=== PATIENT | male | born 1980 | race Caucasian/White ===

== ENCOUNTER 2023-07-26 18:46 | Emergency (ER) | payer OTHER, SELFPAY ==
[2023-07-26 18:50] VITALS: BP 158/109; PULSE 91; RESP 18; TEMP 36.6; O2SAT 99; BMI 28.6
--- NOTE | 2023-07-26 19:01 | XR_ITS ---
The [address] [address] Patient Name: RONEL NOGUEIRA MRN: [id number] date: 1980 Sex: M Assigned Patient Location: ED.MAIN Current Patient Location: Accession/Order Number: [id number] Exam Date: 07/26/2023 19:05 Report Date: 07/26/2023 20:14 At the request of: JILL ABURTO Procedure: XR ankle RT 2V PROCEDURE: XR ankle RT 2V HISTORY: pain ; acute right ankle pain after falling off ladder COMPARISON: None. FINDINGS: BONES:A few tiny, submillimeter, calcifications distal to the medial malleolus. SOFT TISSUES:Mild medial soft tissue swelling. EFFUSION:None visible. OTHER: Negative. XR/XR ankle RT 2V IMPRESSION: 1. Medial swelling suggesting soft tissue injury. 2. Several tiny punctate calcifications distal to the medial malleolus; tiny cortical avulsion fractures versus sequela of remote injury. Electronically authenticated by: INDY GRISSOM Date: 07/26/2023 20:14
--- NOTE | 2023-07-26 19:01 | ED.LOWEXI1 ---
HPI - Extremity Injury (Lower) General Chief Complaint: Extremity Injury, Lower Stated Complaint: poss broken ankle Time Seen by Provider: 07/26/23 19:01 Source: patient Mode of arrival: Wheelchair Limitations: no limitations History of Present Illness HPI Narrative: 43-year-old male presents with right ankle pain after he rolled it after he was stepping off of a step. Hurts to ambulate move ankle. Denies swelling, temp or sensation changes Related Data Allergies Allergy/AdvReac Type Severity Reaction Status Date / Time No Known Drug Allergies Allergy Verified 07/26/23 18:55 Review of Systems ROS Status of ROS 10 or more systems reviewed and unremarkable except as noted in history and below Exam Narrative Exam Narrative: General: A&Ox3, no distress, talking in full an complete sentences skin: warm, dry, intact head: normocephalic, atraumatic eyes: EOMI nose: nares patent neck: supple, trachea midline respiratory: non-labored extremities: Tender to left medial malleolus, no tenderness to metatarsals or tib-fib, FROM x 4, strength +5/5 neuro: A&Ox3 psych: appropriate mood and affect, cooperative Constitutional Vital Signs, click to edit/add: Last Vital Signs Temp 97.8 F 07/26/23 18:50 Pulse 91 H 07/26/23 18:50 Resp 18 07/26/23 18:50 BP 158/109 H 07/26/23 18:50 Pulse Ox 99 07/26/23 18:50 Course Vital Signs Vital signs: Vital Signs Temperature 97.8 F 07/26/23 18:50 Pulse Rate 91 H 07/26/23 18:50 Respiratory Rate 18 07/26/23 18:50 Blood Pressure 158/109 H 07/26/23 18:50 Pulse Oximetry 99 07/26/23 18:50 Temperature 97.8 F 07/26/23 18:50 Pulse Rate 91 H 07/26/23 18:50 Respiratory Rate 18 07/26/23 18:50 Blood Pressure 158/109 H 07/26/23 18:50 Pulse Oximetry 99 07/26/23 18:50 MDM - Extremity Injury (Lower) MDM Narrative Medical decision making narrative: I offered pain control and he declines. No acute findings on prelim x-ray and reviewed with Dr. Major. Dirk bandage placed with neurovascular intact. I offered crutches and he states that he has them at home. I again offered pain control and he declines. F/u with PCP. afebrile, not tachypneic, not tachycardic, tolerating p.o., not hypoxic, non toxic appearing and hemodynamically stable to be d/c. answered all questions. pt in agreement with tx. educated when to return to ER. Discharge Plan Discharge Chief Complaint: Extremity Injury, Lower Clinical Impression: Right ankle sprain Qualifiers: Encounter type: initial encounter Involved ligament of ankle: unspecified ligament Qualified Code(s): S93.401A - Sprain of unspecified ligament of right ankle, initial encounter Patient Disposition: Home, Self-Care Time of Disposition Decision: 19:58 Condition: Good Mode of Transportation: Private Vehicle Instructions: Ankle Sprain (ED) Stand Alone Forms: Portal Instructions Referrals: Physician,Non-Staff, MD [Primary Care Provider] - 1 week Discharge Date/Time: 07/26/23 20:07
== END 2023-07-26 20:07 | disposition home or self-care (01) ==
PROVIDERS: Emergency Provider Emergency Medicine
DX: S93.401A Sprain of unspecified ligament of right ankle, initial encounter (principal); W18.40XA Slipping, tripping and stumbling without falling, unspecified, initial encounter
CPT/HCPCS: 73600; 99283